=== PATIENT | female | born 1950 | race African-American/Black ===

== ENCOUNTER 2022-10-21 17:16 | Emergency (ER) | payer MEDICARE, MEDICAID ==
[~2022-10-21] VITALS: Ht 167.6 cm; Wt 88.3 kg
[2022-10-21] MEDS ORDERED: IOHEXOL-350 100 ML BOTTLE ONE (17:35)
[2022-10-21 18:09] LABS: BASOPHILS % 0.9 % (0.0-2.0); HEMATOCRIT. 39.3 % (36.0-48.0); LYMPHOCYTES % 25.1 % (20.0-50.0); MEAN CORPUSCULAR HEMOGLOBIN 31.1 pg (28.0-32.0); MEAN CORPUSCULAR VOLUME 93.8 fL (81.0-99.0); MEAN PLATELET VOLUME 9.3 fl (7.4-10.4); MONOCYTES % 7.5 % (2.0-8.0); NEUTROPHILS % 65.5 % (40.0-76.0); PLATELET 205 x1000/uL (130-400); RED CELL DISTRIBUTION WIDTH 14.5 % (11.6-14.6)
[2022-10-21 18:17] LABS: PROTHROMBIN TIME 10.4 sec (9.6-11.0)
[2022-10-21 18:21] LABS: CHLORIDE 106 mEq/L (98-107)
[2022-10-21 18:32] LABS: CREATINE KINASE 51 IU/L (26-192); ETHANOL BLOOD < 10 mg/dL
[2022-10-21] MEDS ORDERED: ASPIRIN 325MG EC TABLET PO ONE (18:45)
[2022-10-21] MEDS ORDERED: CLOPIDOGREL 75MG TABLET PO ONE (18:45)
[2022-10-21 21:54] LABS: CLARITY URINE CLEAR (CLEAR); COLOR URINE YELLOW (YELLOW); KETONES URINE NEGATIVE (NEGATIVE); LEUKOCYTE ESTERASE URINE 1+ (NEGATIVE); NITRITE URINE NEGATIVE (NEGATIVE); OCCULT BLOOD URINE NEGATIVE (NEGATIVE); PROTEIN URINE NEGATIVE (NEGATIVE); SPECIFIC GRAVITY URINE 1.066 (1.005-1.030); UROBILINOGEN URINE 0.2 E.U./dL (0.2-1.0)
[2022-10-21 22:00] VITALS: BP 132/83
[2022-10-21 22:03] LABS: *AMPHETAMINES SCREEN URINE NEGATIVE (NEGATIVE); *BARBITURATES SCREEN URINE NEGATIVE (NEGATIVE); *BENZODIAZEPINES SCREEN URINE NEGATIVE (NEGATIVE); *COCAINE SCREEN URINE NEGATIVE (NEGATIVE); CANNABINOID URINE SCREEN NEGATIVE (NEGATIVE); METHADONE URINE SCREEN NEGATIVE (NEGATIVE); OPIATES URINE SCREEN NEGATIVE (NEGATIVE); PHENCYCLIDINE URINE SCREEN NEGATIVE (NEGATIVE)
== END 2022-10-21 22:25 | disposition left against medical advice (07) ==
LOC: ER 17:16 → EDBEDREQTM 20:45 → EDBEDREQ 20:45 → ER 22:25 → CANBEDREQ 10-22 02:48
DX: G45.9 Transient cerebral ischemic attack, unspecified (principal); R91.8 Other nonspecific abnormal finding of lung field; J44.9 Chronic obstructive pulmonary disease, unspecified; F17.210 Nicotine dependence, cigarettes, uncomplicated; Z71.6 Tobacco abuse counseling; Z88.0 Allergy status to penicillin
CPT/HCPCS: 36415; 70450; 70496; 70498; 71045; 80053; 80305; 80320; 81003; 82550; 82962; 84484; 85025; 85610; 93005; 99291; 99406; Q9967; G0480